=== PATIENT | male | born 1995 | race Two or more races ===

== ENCOUNTER 2020-09-30 06:00 | Day surgery (SDC) | payer OTHER ==
[2020-09-30] MEDS ORDERED: COLACE100 MG PO (10:21)
[2020-09-30] MEDS ORDERED: PERCOCET 5-3251 EACH PO (10:22)
[2020-09-30] MEDS ORDERED: NEURONTIN300 MG PO (10:23)
[2020-09-30] MEDS ORDERED: KETO10TA2 PO (10:23)
[2020-09-30] MEDS ORDERED: BACTRIM DS TAB1 EACH PO (10:24)
== END 2020-09-30 14:15 | disposition home or self-care (01) ==
LOC: CIR.AMB 06:00
PROVIDERS: ATTEND Surgery
DX: L05.01 Pilonidal cyst with abscess (principal); Z20.822 Contact with and (suspected) exposure to COVID-19